=== PATIENT | female | born 1970 ===

== ENCOUNTER 2023-10-10 05:25 | Day surgery (SDC) | payer OTHER ==
[~2023-10-10 05:25] MED LIST: ACTIVELLA 1 MG1 EACH PO; CLONAZEPAM0.5 M1 PO; EFFEXOR XR75 MG PO; LINZESS145 MCG PO; LIPITOR20 MG PO; NEXIUM40 M1 PO; PEPCID40 MG PO; PROMETRIUM200 MG PO; RIZATRIPTAN10 M1 PO; SEROQUEL XR150 MG PO
[2023-10-10] MEDS ORDERED: CEFOXITIN SODIUM 2,000 MG VIAL IV ONE (05:48)
[2023-10-10] MEDS ORDERED: LIDOCAINE HCL 1%/EPINEPHRINE 20ML VIAL IJ ONE ×2 (06:17→07:05)
[2023-10-10] MEDS ORDERED: BUPIVACAINE HCL/MPF 0.5% 30ML VIAL ONE (06:17)
[2023-10-10] MEDS ORDERED: BUPIVACAINE HCL/Mpf 0.5% 10ML VIAL ONE (07:05)
[2023-10-10] MEDS ORDERED: PERCOCET 5-3251 EACH PO (08:14)
[2023-10-10] MEDS ORDERED: ZOFRAN8 MG PO (08:15)
[2023-10-10] MEDS ORDERED: DICY20TA PO (08:15)
[2023-10-10] MEDS ORDERED: PEPCID AC20 MG PO (08:15)
[2023-10-10] MEDS ORDERED: ONDANSETRON HCL 2 MG/ML VIAL IV ONE (08:45)
[2023-10-10] MEDS ORDERED: ONDANSETRON HCL 2 MG/ML VIAL ONE (08:52)
[2023-10-10] MEDS ORDERED: MORPHINE SULFATE 4 MG/ML VIAL IV ONE ×2 (09:10→09:40)
== END 2023-10-10 11:05 | disposition home or self-care (01) ==
LOC: CIR.AMB 05:25
PROVIDERS: ATTEND Surgery
DX: K80.10 Calculus of gallbladder with chronic cholecystitis without obstruction (principal); F41.8 Other specified anxiety disorders; E78.00 Pure hypercholesterolemia, unspecified; G43.909 Migraine, unspecified, not intractable, without status migrainosus; E78.5 Hyperlipidemia, unspecified